=== PATIENT | male | born 1930 ===

== ENCOUNTER 2018-06-13 08:26 | Outpatient (CLI) | payer MEDICARE | END 2018-06-13 08:27 | disposition home or self-care (01) | LOC: C.LAB 08:26 | DX: D50.9 Iron deficiency anemia, unspecified (principal); K86.2 Cyst of pancreas ==

== ENCOUNTER 2018-06-18 08:43 | Outpatient (CLI) | payer MEDICARE | END 2018-06-18 08:44 | disposition home or self-care (01) | LOC: C.CTH 08:43 ==

== ENCOUNTER 2018-08-11 16:30 | Inpatient (IN) | payer MEDICARE ==
[2018-08-11 16:35] VITALS: BMI 20.2
--- NOTE | 2018-08-11 17:03 | C.PDOC ---
History Of Present Illness 87 year old male presents to ED for evaluation after experiencing a syncopal episode. Patient states he has also been experiencing abdominal pain, then "fainted" Patient states he was at baseline earlier in day. Patient is a poor historian. Patient has a PMHx of hypertension, diabetes, and pancreatic cyst. Patient denies fever, chills, headache, nausea, and vomiting. Time Seen by Provider: 08/11/18 16:39 Chief Complaint (Nursing): Syncope History Per: Patient History/Exam Limitations: no limitations Onset/Duration Of Symptoms: Hrs (1) Current Symptoms Are (Timing): Still Present Activity At Onset Of Symptoms: Standing Associated Symptoms Preceding Syncopal Episode: denies: Lightheadedness Seizure Or Post-ictal Symptoms: None Past Medical History Reviewed: Historical Data, Nursing Documentation, Vital Signs Vital Signs: Last Vital Signs Temp 97.4 F L 08/11/18 16:35 Pulse 62 08/11/18 16:35 Resp 18 08/11/18 16:35 BP 115/65 08/11/18 16:35 Pulse Ox 100 08/11/18 16:35 - Medical History PMH: Anemia, Cardia Arrhythmia, Colonic Polyps, Diabetes, Emphysema, HTN, Hypercholesterolemia, Pancreatitis (cyst pancreas??) Denies: Chronic Kidney Disease Surgical History: Coronary Stent - [facility] Procedures CATARAC PHACOEMULS/ASPIR (09/09/13) CLOSED ENDOSCOPIC BIOPSY OF LARGE INTESTINE (04/24/14) ENDO RECTUM POLYPECTOMY (04/24/14) ESOPHAGOGASTRODUODENOSCOPY [EGD] W/CLOSED BIOPSY (01/02/14) INSERT LENS AT CATAR EXT (09/09/13) Family History: States: Unknown Family Hx - Social History Hx Alcohol Use: No Hx Substance Use: No - Immunization History Hx Tetanus Toxoid Vaccination: No Hx Influenza Vaccination: No Hx Pneumococcal Vaccination: Yes Review Of Systems Constitutional: Negative for: Fever, Chills, Weakness Respiratory: Negative for: Shortness of Breath Gastrointestinal: Positive for: Abdominal Pain. Negative for: Nausea, Vomiting Neurological: Positive for: Other (syncopal episode). Negative for: Weakness, Numbness, Dizziness Physical Exam - Physical Exam Appears: Well, No Acute Distress Skin: Normal Color, Warm, Dry Head: Atraumatic, Normacephalic Neck: Normal ROM, Supple Chest: Symmetrical, No Deformity Cardiovascular: Rhythm Regular, No Murmur Respiratory: No Accessory Muscle Use Gastrointestinal/Abdominal: Soft, No Tenderness Extremity: Bilateral: Atraumatic, Normal Color And Temperature, Normal ROM Neurological/Psych: Oriented x3, Normal Speech, Normal Cognition ED Course And Treatment - Laboratory Results Result Diagrams: 08/11/18 17:18 08/11/18 17:18 ECG: Interpreted By Me, Viewed By Me ECG Rhythm: Sinus Rhythm ECG Interpretation: Normal Rate From EC O2 Sat by Pulse Oximetry: 100 (in RA) - Other Rad CXR X-Ray: Interpreted by Me, Viewed By Me Interpretation: IMPRESSION: Poor inspiration with low lung volumes, crowded bronchovascular markings and mild bibasilar atelectasis. - CT Scan/US Abdomen/ Pelvis CT Other Rad Studies (CT/US): Interpreted By Me, Read By Radiologist CT/US Interpretation: EXAM: CT Abdomen and Pelvis without IV contrast. CLINICAL HISTORY: Fall, upper abd pain. TECHNIQUE: Axial computed tomography images of the abdomen and pelvis without intravenous contrast. 0.00 mGy-cm. CONTRAST: Without. COMPARISON: None provided. FINDINGS: LUNG BASES: The lung bases appear clear. No pleural effusions are seen. LIVER: Unremarkable. GALLBLADDER AND BILE DUCTS: Gallbladder appears distended without gallstones or significant gallbladder wall thickening. There is no pericholecystic fluid. PANCREAS: Unremarkable. SPLEEN: Unremarkable. ADRENAL GLANDS: Unremarkable. KIDNEYS, URETERS, AND BLADDER: The kidneys appear within normal limits. There is no hydronephrosis or hydroureter. No urinary calculi are seen. Prostate gland is enlarged and lobulated in contour. STOMACH AND BOWEL: Unremarkable appearance of the stomach and bowel. No evidence of bowel obstruction. No evidence suggesting enteritis or colitis. Diverticular changes present in sigmoid and descending colon. APPENDIX: No evidence of acute appendicitis on CT examination. PERITONEUM: No free fluid. No free air. LYMPH NODES: No lymphadenopathy is evident. VASCULATURE: Advanced atherosclerotic changes present abdominal aorta and iliac vessels. BONES: There is advanced hypertrophic degenerative changes lower lumbar spine with disc space narrowing chronic disc disease at multiple levels. Minimal anterolisthesis L3-L4 level. IMPRESSION: No suspicious mass or lymphadenopathy. Markedly enlarged lobulated prostate gland. Distended gallbladder. Diverticular changes sigmoid colon and descending colon. 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 Minimal anterolisthesis L3-L4 level. Head CT Other Rad Studies (CT/US): Interpreted By Me, Read By Radiologist CT/US Interpretation: EXAM: CT Head without Intravenous Contrast. CLINICAL HISTORY: Syncope. TECHNIQUE: Axial computed tomography images of the head/brain without intravenous contrast. 0.00 mGy-cm. COMPARISON: None provided. FINDINGS: BRAIN. No acute intraparenchymal hemorrhage. No mass lesion. No CT evidence for acute territorial infarct. No midline shift or extra- axial collections. VENTRICLES: No hydrocephalus. ORBITS: The orbits are unremarkable. SINUSES AND MASTOIDS: The paranasal sinuses and mastoid air cells are clear. BONES: No fracture. SOFT TISSUES: Unremarkable. IMPRESSION: No acute intracranial abnormality. Medical Decision Making Medical Decision Making: Impression: 87 year old male s/p experiencing syncopal episode ro intracranil abdominal cardiac vasovagal Plan: EKG and CXR ordered for patient. Head CT and Abdomen/ Pelvis CT ordered for patient. Patient given Protonix IVP. Labs ordered with troponin and UA. labs neg, discussed results with misti cai accpeted for admission. minimal elevated lipase <3x upper limitd. defer further management of other findings inpt. Disposition - Disposition Disposition: HOSPITALIZED Disposition Time: 21:00 Condition: STABLE - Clinical Impression Clinical Impression: Dizziness, Syncope, Abdominal pain - Scribe Statement The provider has reviewed the documentation as recorded by the Scribe (Bia Aden) All medical record entries made by the Scribe were at my direction and pers onally dictated by me. I have reviewed the chart and agree that the record accurately reflects my personal performance of the history, physical exam, medical decision making, and the department course for this patient. I have also personally directed, reviewed, and agree with the discharge instructions and disposition.
[2018-08-11 17:27] LABS: BASO % 0.3 % (0.0-2.0); EOS # 0.1 K/uL (0.0-0.7); EOS % 1.4 % (0.0-4.0); HEMOGLOBIN 13.2 g/dL (12.0-18.0); LYMPH # 0.8 K/uL (1.0-4.3); LYMPH % 11.4 % (20.0-40.0); MEAN CORPUSCULAR HEMOGLOBIN 28.2 pg (27.0-31.0); MEAN CORPUSCULAR HGB CONC 32.2 g/dL (33.0-37.0); MEAN PLATELET VOLUME 8.3 fL (7.2-11.7); MONO # 0.5 K/uL (0.0-0.8); MONO % 6.7 % (0.0-10.0); NEUT # 5.9 K/uL (1.8-7.0); NEUT % 80.2 % (50.0-75.0); RBC 4.68 Mil/uL (4.40-5.90); RED CELL DISTRIBUTION WIDTH 15.9 % (11.5-14.5); WHITE BLOOD COUNT 7.4 K/uL (4.8-10.8)
[2018-08-11 17:30] LABS: MEAN CELL VOLUME 87.7 fL (80.0-94.0)
[2018-08-11 17:34] LABS: INR 1.1; PROTHROMBIN TIME 11.7 SECONDS (9.7-12.2)
[2018-08-11 17:39] LABS: ALB/GLOB RATIO 1.6 (1.0-2.1); ALBUMIN 4.8 g/dL (3.5-5.0); ALT/SGPT 11 U/L (21-72); AST/SGOT 27 U/L (17-59); BLOOD UREA NITROGEN 25 mg/dL (9-20); CALCIUM 9.6 mg/dl (8.6-10.4); GFR NON-AFRICAN AMERICAN 48; LIPASE 455 U/L (23-300)
--- NOTE | 2018-08-11 18:19 | RAD ---
Date of service: 08/11/2018 HISTORY: Chest pain COMPARISON: Comparison chest 08/28/2013. FINDINGS: LUNGS: Poor inspiration with low lung volumes, crowded bronchovascular markings and mild bibasilar atelectasis. PLEURA: No significant pleural effusion identified, no pneumothorax apparent. CARDIOVASCULAR: Minor aortic atherosclerotic calcification present. Normal cardiac size. No pulmonary vascular congestion. OSSEOUS STRUCTURES: No significant abnormalities. VISUALIZED UPPER ABDOMEN: Normal. OTHER FINDINGS: None. IMPRESSION: Poor inspiration with low lung volumes, crowded bronchovascular markings and mild bibasilar atelectasis.
[2018-08-11 18:54] LABS: SQUAMOUS EPITHIAL 1 /hpf (0-5); URINE BACTERIA RARE (<OCC); URINE BILIRUBIN NEGATIVE (NEGATIVE); URINE BLOOD NEGATIVE (NEGATIVE); URINE CLARITY Hazy (Clear); URINE COLOR Amber (YELLOW); URINE GLUCOSE (UA) NORMAL (Normal); URINE LEUKOCYTE ESTERASE NEG Leu/uL (Negative); URINE PROTEIN 2+ mg/dL (NEGATIVE); URINE UROBILINOGEN NORMAL mg/dL (0.2-1.0)
[2018-08-12 03:23] LABS: CK-MB 1.02 ng/mL (0.0-3.38)
[2018-08-12] MEDS: (Novolog) Insulin Aspart, Recombinant 100 u/ml 10 ml vial SC SCH ×4 (07:37→21:03)
--- NOTE | 2018-08-12 08:12 | CT ---
Date of service: 08/11/2018 PROCEDURE: CT HEAD WITHOUT CONTRAST. HISTORY: syncope COMPARISON: None available. TECHNIQUE: Axial computed tomography images were obtained through the head/brain without intravenous contrast. Radiation dose: Total exam DLP = 1053.09 mGy-cm. This CT exam was performed using one or more of the following dose reduction techniques: Automated exposure control, adjustment of the mA and/or kV according to patient size, and/or use of iterative reconstruction technique. FINDINGS: HEMORRHAGE: No intracranial hemorrhage. BRAIN: There are mild chronic microangiopathic changes. There is no mass, mass effect or abnormal extra-axial fluid collection. There is no territorial infarction. The midline sagittal structures are normal. VENTRICLES: There is mild age-related global parenchymal volume loss and proportionate enlargement of the ventricles and cortical sulci. CALVARIUM: There is no calvarial fracture or extracranial soft tissue swelling. PARANASAL SINUSES: Predominantly clear. MASTOID AIR CELLS: Predominantly clear. OTHER FINDINGS: None. IMPRESSION: No acute intracranial abnormality. Mild chronic microangiopathic changes and mild age-related global parenchymal volume loss. A preliminary report was provided by [facility].
[2018-08-12 08:40] LABS: FREE T4 0.86 ng/dL (0.78-2.19)
--- NOTE | 2018-08-12 08:59 | CT ---
Date of service: 08/11/2018 PROCEDURE: CT Abdomen and Pelvis without intravenous contrast HISTORY: upper abd pain COMPARISON: 06/28/2018 TECHNIQUE: Technique. Contrast dose: Radiation dose: Total exam DLP = 270.23 mGy-cm. This CT exam was performed using one or more of the following dose reduction techniques: Automated exposure control, adjustment of the mA and/or kV according to patient size, and/or use of iterative reconstruction technique. FINDINGS: LOWER THORAX: Unremarkable. LIVER: Unremarkable. No gross lesion or ductal dilatation. GALLBLADDER AND BILE DUCTS: Distended gallbladder. PANCREAS: Unremarkable. No gross lesion or ductal dilatation. SPLEEN: Unremarkable. ADRENALS: Unremarkable. No mass. KIDNEYS AND URETERS: Unremarkable. No hydronephrosis. No solid mass. VASCULATURE: Unremarkable. No aortic aneurysm. No aortic atherosclerotic calcification or mural plaque present. BOWEL: Diverticulosis. APPENDIX: Unremarkable. Normal appendix. PERITONEUM: Unremarkable. No free fluid. No free air. LYMPH NODES: Unremarkable. No enlarged lymph nodes. BLADDER: Unremarkable. REPRODUCTIVE: Enlarged lobulated prostate gland. BONES: No acute fracture. OTHER FINDINGS: None. IMPRESSION: Distended gallbladder, colonic diverticulosis. Enlarged prostate
[2018-08-12] MEDS: Metoprolol Succinate 25 mg XL Tab PO SCH (09:35)
[2018-08-12 09:44] LABS: CK-MB 1.06 ng/mL (0.0-3.38)
[2018-08-12] MEDS ORDERED: Home Med 1 UNIT (Solifenacin Succinate [Vesicare] 5 MG) PO SCH (10:00)
[2018-08-12] MEDS: Enoxaparin 30 mg Syringe SC SCH (12:05)
[2018-08-12] MEDS: Ranolazine 500 mg Extended Release Tablets PO SCH ×2 (12:05→17:24)
[2018-08-12] MEDS: CREON PO SCH (17:23)
--- NOTE | 2018-08-12 17:28 | CP.PCM.CON ---
History of Present Illness - History of Present Illness History of Present Illness: CONSULTATION DICTATED SYNCOPAL ATTACK ASYMMETRIC DTRs NEEDS WORK UP MRI/EEG Sz PRECAUTION Past Patient History - Past Medical History & Family History Past Medical History?: Yes - Past Social History Smoking Status: Never Smoked - CARDIAC Hx Hypercholesterolemia: Yes Hx Hypertension: Yes - PULMONARY Hx Emphysema: Yes - NEUROLOGICAL Hx Neurological Disorder: No Hx Dizziness: Yes - HEENT Hx HEENT Problems: No Hx Cataracts: Yes (BIOL) - RENAL Hx Chronic Kidney Disease: No - ENDOCRINE/METABOLIC Hx Diabetes Mellitus Type 2: Yes - HEMATOLOGICAL/ONCOLOGICAL Hx Anemia: Yes - INTEGUMENTARY Hx Dermatological Problems: No - MUSCULOSKELETAL/RHEUMATOLOGICAL Hx Musculoskeletal Disorders: No Hx Back Pain: Yes Hx Falls: No - GASTROINTESTINAL Hx Pancreatitis: Yes (cyst pancreas??) - GENITOURINARY/GYNECOLOGICAL Hx Genitourinary Disorders: Yes Hx Prostate Problems: Yes (ENLARGED) - PSYCHIATRIC Hx Substance Use: No - SURGICAL HISTORY Hx Coronary Stent: Yes - ANESTHESIA Hx Anesthesia: Yes Hx Anesthesia Reactions: No Hx Malignant Hyperthermia: No Meds Allergies/Adverse Reactions: Allergies Allergy/AdvReac Type Severity Reaction Status Date / Time No Known Allergies Allergy Verified 08/11/18 16:35 - Medications Medications: Current Medications Aspirin (Aspirin Chewable) 81 mg PO DAILY [facility] Last Admin: 08/12/18 09:35 Dose: 81 mg Clopidogrel Bisulfate (Plavix) 75 mg PO DAILY [facility] Last Admin: 08/12/18 09:35 Dose: 75 mg Donepezil HCl (Aricept) 5 mg PO [facility] Enalapril Maleate (Vasotec) 5 mg PO DAILY [facility] Last Admin: 08/12/18 09:36 Dose: 5 mg Enoxaparin Sodium (Lovenox) 30 mg SC DAILY [facility] Last Admin: 08/12/18 12:05 Dose: 30 mg Famotidine (Pepcid) 20 mg PO DAILY [facility] Last Admin: 08/12/18 09:36 Dose: 20 mg Home Med (Patient's Own Medication) 3 tab PO TIDCC [facility] Last Admin: 08/12/18 17:23 Dose: 3 tab Influenza Virus Vaccine (Flucelvax Quad [id number] Syr) 60 mcg IM .ONCE ONE Stop: 08/13/18 14:01 Insulin Aspart (Novolog) 0 unit SC [facility]; Protocol Last Admin: 03/04/19 16:43 Dose: Not Given [facility] Last Admin: 08/12/18 17:24 Dose: 1,000 mg Metoprolol Succinate (Toprol Xl) 25 mg PO DAILY [facility] Last Admin: 08/12/18 09:35 Dose: 25 mg Ranolazine (Ranexa) 500 mg PO BID [facility] Last Admin: 08/12/18 17:24 Dose: 500 mg Rosuvastatin Calcium (Crestor) 20 mg PO [facility] Results - Vital Signs Recent Vital Signs: Last Vital Signs Temp 98.0 F 08/12/18 15:16 Pulse 66 08/12/18 15:16 Resp 20 08/12/18 15:16 BP 94/57 L 08/12/18 15:16 Pulse Ox 98 08/12/18 15:16 - Labs Result Diagrams: 08/11/18 17:18 08/11/18 17:18 Labs: Laboratory Results - last 24 hr 08/11/18 08/11/18 08/11/18 17:18 17:18 17:18 WBC 7.4 RBC 4.68 Hgb 13.2 Hct 41.0 MCV 87.7 D MCH 28.2 MCHC 32.2 L RDW 15.9 H Plt Count 244 MPV 8.3 Neut % (Auto) 80.2 H Lymph % (Auto) 11.4 L [place] % (Auto) 6.7 Eos % (Auto) 1.4 Baso % (Auto) 0.3 Neut # (Auto) 5.9 Lymph # (Auto) 0.8 L [place] # (Auto) 0.5 Eos # (Auto) 0.1 Baso # (Auto) 0.0 PT 11.7 INR 1.1 APTT 32 Sodium 137 Potassium 4.2 Chloride 100 Carbon Dioxide 25 Anion Gap 16 BUN 25 H Creatinine 1.4 Est GFR ( Amer) 58 Est GFR (Non-Af Amer) 48 POC Glucose (mg/dL) Random Glucose 132 H Hemoglobin A1c Calcium 9.6 Total Bilirubin 0.3 AST 27 ALT 11 L D Alkaline Phosphatase 80 Total Creatine Kinase CK-MB (Mass) Troponin I < 0.0120 Total Protein 7.8 Albumin 4.8 Globulin 3.0 Albumin/Globulin Ratio 1.6 Lipase 455 H Vitamin B12 Free T4 TSH 3rd Generation Urine Color Urine Clarity Urine pH Ur Specific [place] Urine Protein Urine Glucose (UA) Urine Ketones Urine Blood Urine Nitrate Urine Bilirubin Urine Urobilinogen Ur Leukocyte Esterase Urine WBC (Auto) Urine RBC (Auto) Ur Squamous Epith Cells Urine Bacteria Hyaline Casts 08/11/18 08/12/18 08/12/18 18:30 02:05 07:55 WBC RBC Hgb Hct MCV MCH MCHC RDW Plt Count MPV Neut % (Auto) Lymph % (Auto) [place] % (Auto) Eos % (Auto) Baso % (Auto) Neut # (Auto) Lymph # (Auto) [place] # (Auto) Eos # (Auto) Baso # (Auto) PT INR APTT Sodium Potassium Chloride Carbon Dioxide Anion Gap BUN Creatinine Est GFR ( Amer) Est GFR (Non-Af Amer) POC Glucose (mg/dL) Random Glucose Hemoglobin A1c 6.5 Calcium Total Bilirubin AST ALT Alkaline Phosphatase Total Creatine Kinase 45 L CK-MB (Mass) 1.02 Troponin I < 0.0120 Total Protein Albumin Globulin Albumin/Globulin Ratio Lipase Vitamin B12 Free T4 TSH 3rd Generation Urine Color [place] Urine Clarity Hazy Urine pH 5.0 Ur Specific [place] 1.025 Urine Protein 2+ H Urine Glucose (UA) Normal Urine Ketones Negative Urine Blood Negative Urine Nitrate Negative Urine Bilirubin Negative Urine Urobilinogen Normal Ur Leukocyte Esterase Neg Urine WBC (Auto) 2 Urine RBC (Auto) 1 Ur Squamous Epith Cells 1 Urine Bacteria Rare Hyaline Casts 6-10 H 08/12/18 08/12/18 08/12/18 07:55 07:55 09:09 WBC RBC Hgb Hct MCV MCH MCHC RDW Plt Count MPV Neut % (Auto) Lymph % (Auto) [place] % (Auto) Eos % (Auto) Baso % (Auto) Neut # (Auto) Lymph # (Auto) [place] # (Auto) Eos # (Auto) Baso # (Auto) PT INR APTT Sodium Potassium Chloride Carbon Dioxide Anion Gap BUN Creatinine Est GFR ( Amer) Est GFR (Non-Af Amer) POC Glucose (mg/dL) Random Glucose Hemoglobin A1c Calcium Total Bilirubin AST ALT Alkaline Phosphatase Total Creatine Kinase 45 L CK-MB (Mass) 1.06 Troponin I < 0.0120 Total Protein Albumin Globulin Albumin/Globulin Ratio Lipase Vitamin B12 332 Free T4 0.86 TSH 3rd Generation 1.91 Urine Color Urine Clarity Urine pH Ur Specific [place] Urine Protein Urine Glucose (UA) Urine Ketones Urine Blood Urine Nitrate Urine Bilirubin Urine Urobilinogen Ur Leukocyte Esterase Urine WBC (Auto) Urine RBC (Auto) Ur Squamous Epith Cells Urine Bacteria Hyaline Casts 08/12/18 11:49 WBC RBC Hgb Hct MCV MCH MCHC RDW Plt Count MPV Neut % (Auto) Lymph % (Auto) [place] % (Auto) Eos % (Auto) Baso % (Auto) Neut # (Auto) Lymph # (Auto) [place] # (Auto) Eos # (Auto) Baso # (Auto) PT INR APTT Sodium Potassium Chloride Carbon Dioxide Anion Gap BUN Creatinine Est GFR ( Amer) Est GFR (Non-Af Amer) POC Glucose (mg/dL) 185 H Random Glucose Hemoglobin A1c Calcium Total Bilirubin AST ALT Alkaline Phosphatase Total Creatine Kinase CK-MB (Mass) Troponin I Total Protein Albumin Globulin Albumin/Globulin Ratio Lipase Vitamin B12 Free T4 TSH 3rd Generation Urine Color Urine Clarity Urine pH Ur Specific [place] Urine Protein Urine Glucose (UA) Urine Ketones Urine Blood Urine Nitrate Urine Bilirubin Urine Urobilinogen Ur Leukocyte Esterase Urine WBC (Auto) Urine RBC (Auto) Ur Squamous Epith Cells Urine Bacteria Hyaline Casts
--- NOTE | 2018-08-12 19:20 | CARD ---
APPROVED REPORT Date of service: 08/11/2018 EKG Measurement Heart [id number] <Conclusion> Normal sinus rhythm Left axis deviation Abnormal ECG
--- NOTE | 2018-08-12 21:36 | CP.PCM.HP ---
Past Patient History - Past Medical History & Family History Past Medical History?: Yes - Past Social History Smoking Status: Never Smoked - CARDIAC Hx Hypercholesterolemia: Yes Hx Hypertension: Yes - PULMONARY Hx Emphysema: Yes - NEUROLOGICAL Hx Neurological Disorder: No Hx Dizziness: Yes - HEENT Hx HEENT Problems: No Hx Cataracts: Yes (BIOL) - RENAL Hx Chronic Kidney Disease: No - ENDOCRINE/METABOLIC Hx Diabetes Mellitus Type 2: Yes - HEMATOLOGICAL/ONCOLOGICAL Hx Anemia: Yes - INTEGUMENTARY Hx Dermatological Problems: No - MUSCULOSKELETAL/RHEUMATOLOGICAL Hx Musculoskeletal Disorders: No Hx Back Pain: Yes Hx Falls: No - GASTROINTESTINAL Hx Pancreatitis: Yes (cyst pancreas??) - GENITOURINARY/GYNECOLOGICAL Hx Genitourinary Disorders: Yes Hx Prostate Problems: Yes (ENLARGED) - PSYCHIATRIC Hx Substance Use: No - SURGICAL HISTORY Hx Coronary Stent: Yes - ANESTHESIA Hx Anesthesia: Yes Hx Anesthesia Reactions: No Hx Malignant Hyperthermia: No Meds Allergies/Adverse Reactions: Allergies Allergy/AdvReac Type Severity Reaction Status Date / Time No Known Allergies Allergy Verified 08/11/18 16:35 Physical Exam - Constitutional Appears: Well - Head Exam Head Exam: ATRAUMATIC, NORMAL INSPECTION, NORMOCEPHALIC - Eye Exam Eye Exam: EOMI, Normal appearance, PERRL Pupil Exam: NORMAL ACCOMODATION, PERRL - ENT Exam ENT Exam: Mucous Membranes Moist, Normal Exam - Neck Exam Neck exam: Positive for: Normal Inspection - Respiratory Exam Respiratory Exam: Decreased Breath Sounds - Cardiovascular Exam Cardiovascular Exam: REGULAR RHYTHM, +S1, +S2 - GI/Abdominal Exam GI & Abdominal Exam: Diminished Bowel Sounds, Soft - Rectal Exam Rectal Exam: Deferred Results - Vital Signs Recent Vital Signs: Last Vital Signs Temp 98.0 F 08/12/18 15:16 Pulse 66 08/12/18 15:16 Resp 20 08/12/18 15:16 BP 94/57 L 08/12/18 15:16 Pulse Ox 98 08/12/18 15:16 - Labs Result Diagrams: 08/11/18 17:18 08/11/18 17:18 Labs: Laboratory Results - last 24 hr 08/12/18 08/12/18 08/12/18 02:05 07:55 07:55 POC Glucose (mg/dL) Hemoglobin A1c 6.5 Total Creatine Kinase 45 L CK-MB (Mass) 1.02 Troponin I < 0.0120 Vitamin B12 Free T4 0.86 TSH 3rd Generation 1.91 08/12/18 08/12/18 08/12/18 07:55 09:09 11:49 POC Glucose (mg/dL) 185 H Hemoglobin A1c Total Creatine Kinase 45 L CK-MB (Mass) 1.06 Troponin I < 0.0120 Vitamin B12 332 Free T4 TSH 3rd Generation 08/12/18 20:58 POC Glucose (mg/dL) 135 H Hemoglobin A1c Total Creatine Kinase CK-MB (Mass) Troponin I Vitamin B12 Free T4 TSH 3rd Generation
--- NOTE | 2018-08-12 21:58 | VASCLAB ---
Date of service: 08/12/2018 PROCEDURE: Carotid Duplex Exam. HISTORY: asses stenosis COMPARISON: None available. TECHNIQUE: Grayscale and duplex Doppler evaluation of the cervical carotid and vertebral arteries were performed. The common carotid, carotid bifurcations and cervical Internal Carotid Artery (ICA) and proximal External Carotid Artery (ECA) were evaluated. The vertebral arteries were evaluated for gross patency and flow direction. Report prepared by Samuel George, BS, RVT FINDINGS: RIGHT CAROTID ARTERIES: 1. Common Carotid Artery: No significant focal plaque formation of the right common carotid artery. Mild intimal hyperplasia. Maximum Peak Systolic velocity: 97 cm/sec: End-diastolic velocity 21 cm/sec. 2. Carotid Bifurcation: No significant focal plaque formation. Maximum Peak Systolic velocity: 85 cm/sec: End-diastolic velocity 18 cm/sec. 3. Internal Carotid Artery: Plaque description: No significant focal plaque. 3.1. Proximal Segment: Peak systolic velocity 85 cm/sec: End-diastolic velocity 21 cm/sec - % stenosis 0-15% 3.2. Middle Segment: Peak systolic velocity 125 cm/sec: End-diastolic velocity 36 cm/sec - % stenosis 0-15% 3.3. Distal Segment: Peak systolic velocity 109 cm/sec: End-diastolic velocity 32 cm/sec - % stenosis 0-15% 4. External Carotid Artery: No significant focal plaque formation. Peak systolic velocity 111 cm/sec 5. ICA/CCA Ratio: 1.3 LEFT CAROTID ARTERIES: 1. Common Carotid Artery: No significant focal plaque formation of the left common carotid artery. Mild intimal hyperplasia. Maximum Peak Systolic velocity: 105 cm/sec: End-diastolic velocity 19 cm/sec. 2. Carotid Bifurcation: No significant focal plaque formation. Maximum Peak Systolic velocity: 95 cm/sec: End-diastolic velocity 23 cm/sec. 3. Internal Carotid Artery: Plaque description: No significant focal plaque. 3.1. Proximal Segment: Peak systolic velocity 96 cm/sec: End-diastolic velocity 23 cm/sec - % stenosis 0-15% 3.2. Middle Segment: Peak systolic velocity 87 cm/sec: End-diastolic velocity 22 cm/sec - % stenosis 0-15% 3.3. Distal Segment: Peak systolic velocity 49 cm/sec: End-diastolic velocity 19 cm/sec - % stenosis 0-15% 4. External Carotid Artery: No significant focal plaque formation. Peak systolic velocity 90 cm/sec 5. ICA/CCA Ratio: 1.1 VERTEBRAL ARTERIES: 1. Right Vertebral Artery: The right vertebral artery flow direction is antegrade. 2. Left Vertebral Artery: The left vertebral artery flow direction is antegrade. OTHER FINDINGS: 1. Right Brachial Blood pressure: 120 mmHg. 2. Left Brachial Blood pressure: 110 mmHg. IMPRESSION: RIGHT: Duplex scan does not suggest hemodynamically significant stenosis of the right extracranial carotid arteries. LEFT: Duplex scan does not suggest hemodynamically significant stenosis of the left extracranial carotid arteries.
--- NOTE | 2018-08-13 04:00 | CON ---
DATE: 08/12/2018 ATTENDING PHYSICIAN: Nani Riggs MD LOCATION: The patient's room number 659, bed B. REASON FOR CONSULTATION: Syncopal attack. CHIEF COMPLAINT: The patient was brought into [facility] following a syncopal attack while he was in the [employer]. From neurological point of view, I was called in to evaluate him for further management. HISTORY OF PRESENT ILLNESS: Mr. Ananth Cali is an 87-year-old right-handed male. While he was shopping in [employer], he felt nauseous and abdominal cramp. The next thing he realized he was on the floor. Following this, he was back up by himself; however, this syncopal attack brought him to the hospital for further evaluation. No similar episodes happened in the past. No association of bowel and bladder incontinence. No witnessed tonic-clonic activities at the scene. PAST MEDICAL HISTORY: Hypertension, diabetes mellitus, pancreatic cyst. REVIEW OF SYSTEMS: A 12-point system being reviewed. From neuro, the syncopal attack. MEDICATIONS: Aspirin, Crestor, Glucophage, Lovenox, NovoLog, Pepcid, Toprol, Vasotec. PHYSICAL EXAMINATION: VITAL SIGNS: Blood pressure 100/63, mean arterial pressure of 80, respiratory rate 18, temperature afebrile. NECK: Supple. No carotid bruit. HEART: Sounds are regular. CHEST: Fair air entry. EXTREMITIES: No edema in legs. NEUROLOGIC: Mental status examination: He is awake, alert, oriented to person, place and time. The patient is communicable only in Mauritian. He follows two-step command. No right and left confusion. Cranial nerve examination: Visual field intact. Pupils reactive to light. Extraocular movement normal. No nystagmus. No facial sensory deficit. No facial asymmetry. Hearing is normal. Tongue is midline. Good gag. Motor examination: On outstretched hand with eyes closed, no drift noted. Power is symmetric on either side. Deep tendon reflexes, left side was hyperreflexic to compare with the right side. However, lower extremity reflexes are absent. Plantars are downgoing. 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 WORKUP: CT of the head reported as reviewed by me, no acute pathology is noted. EKG, normal sinus rhythm. LABORATORY DATA: Blood workup, WBC 7.4, hemoglobin 13.2, hematocrit 41, platelet 244. PT 11.7, INR 1.1, PTT 32. Sodium 132, potassium 4.2, chloride 100, bicarbonate 85, BUN 25, glucose 185. B12 of 332. TSH 1.91. CONCLUSION: After reviewing his history from him as well as medical records, the patient does have a syncopal attack with preceding some abdominal sensation. There is a possibility of nonconvulsive seizures unless otherwise proved out. Other possible cardiac causes should be ruled out including vasovagal process. RECOMMENDATIONS: 1. Continue seizure precaution. 2. MRI of the brain. 3. EEG. 4. Control the abnormal electrolytes including his diabetes. The patient will be followed closely with you. Ludin Hyde MD
[2018-08-13] MEDS: (Novolog) Insulin Aspart, Recombinant 100 u/ml 10 ml vial SC SCH ×4 (08:05→21:46)
[2018-08-13] MEDS: CREON PO SCH ×3 (08:30→17:50)
--- NOTE | 2018-08-13 09:55 | MRI ---
Date of service: 08/12/2018 PROCEDURE: MRI BRAIN WITHOUT CONTRAST HISTORY: Ischemia versus mass COMPARISON: Comparison made with prior CT scan brain 08/11/2018 and MRI brain dated 05/26/2016. TECHNIQUE: Multiplanar, multisequence MR images of the brain were obtained without intravenous contrast enhancement. FINDINGS: HEMORRHAGE: No acute parenchymal, subarachnoid nor extra-axial hemorrhage. DWI: No evidence of an acute or early subacute infarction. BRAIN PARENCHYMA: Minor chronic periventricular white matter ischemic changes seen extending peripherally into the deep white matter both cerebral hemispheres. In addition, there are multiple more discrete small chronic infarcts scattered about the deep and subcortical white both cerebral hemispheres. There are a few small lacunar-type infarcts right cerebellar hemisphere. Moderate generalized volume loss VENTRICLES: No obstructive hydrocephalus. CRANIUM: Unremarkable. ORBITS: Changes of bilateral cataract surgery again noted PARANASAL SINUSES/MASTOIDS: Clear VASCULAR SYSTEM: Visualized major vascular flow voids at skull base patent. OTHER FINDINGS: None. IMPRESSION: No evidence of acute intracranial hemorrhage or infarct. Minor chronic white matter ischemic changes with few tiny lacunar-type infarct right cerebellar hemisphere. Moderate generalized volume Loss
--- NOTE | 2018-08-13 10:31 | CP.PCM.CON ---
History of Present Illness - History of Present Illness History of Present Illness: 87 year old male presents to ED for evaluation after experiencing a syncopal episode. Patient states he has also been experiencing abdominal pain, then "fainted" Patient states he was at baseline earlier in day. Patient had poor PO intake day prior and while at a store felt dizzy and fainted. Denies any CP, palpitation, unusual SOB or other premonitory symptoms suggesting CV disease. PMHX: HTN chronic stable; Lipids chronic stable, CAD PCI in 2017, Chronic pancreatic cyst, DM chronic stable on meds Social : non-smoker, no etoh or drugs currently: no dizziness or CP Review of Systems - Review of Systems All systems: reviewed and no additional remarkable complaints except Past Patient History - Past Medical History & Family History Past Medical History?: Yes - Past Social History Smoking Status: Never Smoked - CARDIAC Hx Hypercholesterolemia: Yes Hx Hypertension: Yes - PULMONARY Hx Emphysema: Yes - NEUROLOGICAL Hx Neurological Disorder: No Hx Dizziness: Yes - HEENT Hx HEENT Problems: No Hx Cataracts: Yes (BIOL) - RENAL Hx Chronic Kidney Disease: No - ENDOCRINE/METABOLIC Hx Diabetes Mellitus Type 2: Yes - HEMATOLOGICAL/ONCOLOGICAL Hx Anemia: Yes - INTEGUMENTARY Hx Dermatological Problems: No - MUSCULOSKELETAL/RHEUMATOLOGICAL Hx Musculoskeletal Disorders: No Hx Back Pain: Yes Hx Falls: No - GASTROINTESTINAL Hx Pancreatitis: Yes (cyst pancreas??) - GENITOURINARY/GYNECOLOGICAL Hx Genitourinary Disorders: Yes Hx Prostate Problems: Yes (ENLARGED) - PSYCHIATRIC Hx Substance Use: No - SURGICAL HISTORY Hx Coronary Stent: Yes - ANESTHESIA Hx Anesthesia: Yes Hx Anesthesia Reactions: No Hx Malignant Hyperthermia: No Meds Allergies/Adverse Reactions: Allergies Allergy/AdvReac Type Severity Reaction Status Date / Time No Known Allergies Allergy Verified 08/11/18 16:35 - Medications Medications: Current Medications Aspirin (Aspirin Chewable) 81 mg PO DAILY [facility] Last Admin: 08/12/18 09:35 Dose: 81 mg Clopidogrel Bisulfate (Plavix) 75 mg PO DAILY [facility] Last Admin: 08/13/18 10:16 Dose: 75 mg Donepezil HCl (Aricept) 5 mg PO HS [facility] Last Admin: 08/12/18 21:25 Dose: 5 mg Enalapril Maleate (Vasotec) 5 mg PO DAILY [facility] Last Admin: 08/12/18 09:36 Dose: 5 mg Enoxaparin Sodium (Lovenox) 30 mg SC DAILY [facility] Last Admin: 08/12/18 12:05 Dose: 30 mg Famotidine (Pepcid) 20 mg PO DAILY [facility] Last Admin: 08/12/18 09:36 Dose: 20 mg Home Med (Patient's Own Medication) 3 tab PO TIDCC [facility] Last Admin: 08/12/18 17:23 Dose: 3 tab Influenza Virus Vaccine (Flucelvax Quad [id number] Syr) 60 mcg IM .ONCE ONE Stop: 08/13/18 14:01 Insulin Aspart (Novolog) 0 unit SC [facility]; Protocol Last Admin: 08/13/18 08:05 Dose: Not Given Metformin HCl (Glucophage) 1,000 mg PO BIDCC [facility] Last Admin: 08/12/18 17:24 Dose: 1,000 mg Metoprolol Succinate (Toprol Xl) 25 mg PO DAILY [facility] Last Admin: 08/12/18 09:35 Dose: 25 mg Ranolazine (Ranexa) 500 mg PO BID [facility] Last Admin: 08/12/18 17:24 Dose: 500 mg Rosuvastatin Calcium (Crestor) 20 mg PO HS [facility] Last Admin: 08/12/18 21:25 Dose: 20 mg Physical Exam - Constitutional Appears: No Acute Distress - Head Exam Head Exam: ATRAUMATIC, NORMAL INSPECTION, NORMOCEPHALIC - Eye Exam Eye Exam: EOMI, Normal appearance. absent: Scleral icterus - ENT Exam ENT Exam: Mucous Membranes Moist, Normal Oropharynx - Neck Exam Neck exam: Positive for: Normal Inspection - Respiratory Exam Respiratory Exam: Clear to Auscultation Bilateral. absent: Rhonchi, Wheezes - Cardiovascular Exam Cardiovascular Exam: Irregular Rhythm, REGULAR RHYTHM, +S1. absent: JVD, Systolic Murmur - GI/Abdominal Exam GI & Abdominal Exam: Normal Bowel Sounds, Soft. absent: Tenderness - Extremities Exam Extremities exam: Positive for: normal inspection. Negative for: calf tenderness, pedal edema - Neurological Exam Neurological exam: Alert, Oriented x3 - Psychiatric Exam Psychiatric exam: Normal Affect, Normal Mood - Skin Skin Exam: Normal Color, Warm Results - Vital Signs Recent Vital Signs: Last Vital Signs Temp 98.2 F 08/13/18 07:00 Pulse 69 08/13/18 07:00 Resp 20 08/13/18 07:00 BP 111/69 08/13/18 07:00 Pulse Ox 94 L 08/13/18 07:00 - Labs Result Diagrams: 08/11/18 17:18 08/11/18 17:18 Labs: Laboratory Results - last 24 hr 08/12/18 08/12/18 11:49 20:58 POC Glucose (mg/dL) 185 H 135 H - EKG Data EKG Interpreted by: Myself - Imaging and Cardiology Chest x-ray Status: Image reviewed by me Assessment & Plan - Assessment and Plan (Free Text) Assessment: 87 y/o man > Syncope: likely vasodepressor from wekaness/dehydration > EKG: NSR, no acute ischemic changes or other high risk findings > CXR: No infiltrate or effusion > Neuro-imaging: Head CT, MRI, carotid: mild atherosclerosis, no acute pathology > Labs: WNL, mild hyperglycemia Sxs do not suggest any cardiac cause: Cont same RX for CAD, HTN, LIPIDS, DM with DAPT, statin, DM meds. Known to have normal LVEF with stage 1 diastolic dysfunction on recent echo 07/2018 outpatient. F/U with Dr. Lorenzo after d.c > GI eval if abdominal sxs persistent.
[2018-08-13] MEDS: Enoxaparin 30 mg Syringe SC SCH (10:32)
[2018-08-13] MEDS: Ranolazine 500 mg Extended Release Tablets PO SCH ×2 (10:33→17:50)
[2018-08-13] MEDS: Metoprolol Succinate 25 mg XL Tab PO SCH (10:34)
--- NOTE | 2018-08-13 12:45 | PN ---
DATE: 08/13/2018 TIME OF EVALUATION: 07:15 a.m. NEUROLOGICAL PROBLEM: Syncopal attack. PHYSICAL EXAMINATION: VITAL SIGNS: Blood pressure 121/76, mean arterial pressure 91, respiratory rate 18, temperature afebrile. GENERAL: The patient is awake, alert, oriented to person, place and time. The patient admits three times watery diarrhea with little headache since then. No new episode of syncope. Rest of the examination is unchanged. WORKUP: Electroencephalogram shows mild slow activities without any focality, paroxysmal activities have focal slowing. Blood glucose level 135. ASSESSMENT AND PLAN: The patient should be hydrated well and cardiology clearance to be done prior to discharge. The patient also recommended to have MRI of the brain, which has been reviewed; does not show any acute pathology except mild atrophy and small vessel disease. Ludin Hyde MD
[2018-08-13] MEDS ORDERED: Influenza Vaccine 60 mcg/0.5 mL SYR (4YR UP) IM ONE (13:00)
--- NOTE | 2018-08-13 19:00 | CP.PCM.PN ---
Subjective - Date & Time of Evaluation Date of Evaluation: 08/13/18 Time of Evaluation: 11:30 - Subjective Subjective: clinically same Objective - Vital Signs/Intake and Output Vital Signs (last 24 hours): Temp Pulse Resp BP Pulse Ox 97.3 F L 58 L 20 112/68 100 08/13/18 15:20 08/13/18 15:20 08/13/18 15:20 08/13/18 15:20 08/13/18 15:20 - Medications Medications: Current Medications Aspirin (Aspirin Chewable) 81 mg PO DAILY [facility] Last Admin: 08/13/18 10:34 Dose: 81 mg Clopidogrel Bisulfate (Plavix) 75 mg PO DAILY [facility] Last Admin: 08/13/18 10:16 Dose: 75 mg Donepezil HCl (Aricept) 5 mg PO HS [facility] Last Admin: 08/12/18 21:25 Dose: 5 mg Enalapril Maleate (Vasotec) 5 mg PO DAILY [facility] Last Admin: 08/13/18 10:34 Dose: 5 mg Enoxaparin Sodium (Lovenox) 30 mg SC DAILY [facility] Last Admin: 08/13/18 10:32 Dose: 30 mg Famotidine (Pepcid) 20 mg PO DAILY [facility] Last Admin: 08/13/18 10:33 Dose: 20 mg Home Med (Patient's Own Medication) 3 tab PO TIDCC [facility] Last Admin: 08/13/18 17:50 Dose: 3 tab Insulin Aspart (Novolog) 0 unit SC [facility]; Protocol Last Admin: 08/13/18 17:52 Dose: Not Given Metformin HCl (Glucophage) 1,000 mg PO BIDCC [facility] Last Admin: 08/13/18 17:50 Dose: 1,000 mg Metoprolol Succinate (Toprol Xl) 25 mg PO DAILY [facility] Last Admin: 08/13/18 10:34 Dose: 25 mg Ranolazine (Ranexa) 500 mg PO BID [facility] Last Admin: 08/13/18 17:50 Dose: 500 mg Rosuvastatin Calcium (Crestor) 20 mg PO HS [facility] Last Admin: 08/12/18 21:25 Dose: 20 mg - Labs Labs: 08/11/18 17:18 08/11/18 17:18 PT 11.7 SECONDS (9.7-12.2) 08/11/18 17:18 INR 1.1 08/11/18 17:18 APTT 32 SECONDS (21-34) 08/11/18 17:18 - Constitutional Appears: Well - Head Exam Head Exam: ATRAUMATIC, NORMAL INSPECTION, NORMOCEPHALIC - Eye Exam Eye Exam: EOMI, Normal appearance, PERRL Pupil Exam: NORMAL ACCOMODATION, PERRL - ENT Exam ENT Exam: Mucous Membranes Moist, Normal Exam - Neck Exam Neck Exam: Full ROM, Normal Inspection. absent: Lymphadenopathy - Respiratory Exam Respiratory Exam: Decreased Breath Sounds - Cardiovascular Exam Cardiovascular Exam: REGULAR RHYTHM, +S1, +S2 - GI/Abdominal Exam GI & Abdominal Exam: Soft, Diminished Bowel Sounds - Rectal Exam Rectal Exam: Deferred
[2018-08-13] MEDS ORDERED: Atropine-Diphenoxylate 0.025-2.5 mg Tab PO STA (23:47)
[2018-08-14] MEDS: CREON PO SCH ×3 (08:29→17:58)
[2018-08-14] MEDS: (Novolog) Insulin Aspart, Recombinant 100 u/ml 10 ml vial SC SCH ×4 (08:30→21:59)
[2018-08-14] MEDS: Ranolazine 500 mg Extended Release Tablets PO SCH ×2 (09:31→17:58)
[2018-08-14] MEDS: Metoprolol Succinate 25 mg XL Tab PO SCH (09:31)
[2018-08-14] MEDS: Enoxaparin 30 mg Syringe SC SCH (09:35)
[2018-08-14] MEDS: Sodium Chloride 0.9% 1,000 ML IV SCH ×2 (10:38→20:12)
--- NOTE | 2018-08-14 10:46 | CP.PCM.PN ---
Subjective - Date & Time of Evaluation Date of Evaluation: 08/14/18 Time of Evaluation: 10:45 - Subjective Subjective: Events reviewed Objective - Vital Signs/Intake and Output Vital Signs (last 24 hours): Temp Pulse Resp BP Pulse Ox 98.0 F 64 20 117/68 99 08/14/18 07:00 08/14/18 09:34 08/14/18 07:00 08/14/18 09:34 08/14/18 07:00 - Medications Medications: Current Medications Aspirin (Aspirin Chewable) 81 mg PO DAILY [facility] Last Admin: 08/14/18 09:31 Dose: 81 mg Clopidogrel Bisulfate (Plavix) 75 mg PO DAILY [facility] Last Admin: 08/14/18 09:31 Dose: 75 mg Donepezil HCl (Aricept) 5 mg PO [facility] Last Admin: 08/13/18 21:43 Dose: 5 mg Enalapril Maleate (Vasotec) 5 mg PO DAILY [facility] Last Admin: 08/14/18 09:34 Dose: 5 mg Enoxaparin Sodium (Lovenox) 30 mg SC DAILY [facility] Last Admin: 08/14/18 09:35 Dose: 30 mg Famotidine (Pepcid) 20 mg PO DAILY [facility] Last Admin: 08/14/18 09:32 Dose: 20 mg Home Med (Patient's Own Medication) 3 tab PO TIDCC [facility] Last Admin: 08/14/18 08:29 Dose: 3 tab Sodium Chloride (Sodium Chloride 0.9%) 1,000 mls @ 100 mls/hr IV .Q10H [facility] Stop: 08/15/18 05:44 Last Admin: 08/14/18 10:38 Dose: 100 mls/hr Insulin Aspart (Novolog) 0 unit SC [facility]; Protocol Last Admin: 08/14/18 08:30 Dose: Not Given Metoprolol Succinate (Toprol Xl) 25 mg PO DAILY [facility] Last Admin: 08/14/18 09:31 Dose: 25 mg Ranolazine (Ranexa) 500 mg PO BID [facility] Last Admin: 08/14/18 09:31 Dose: 500 mg Rosuvastatin Calcium (Crestor) 20 mg PO HS [facility] Last Admin: 08/13/18 21:42 Dose: 20 mg - Labs Labs: 08/11/18 17:18 08/11/18 17:18 PT 11.7 SECONDS (9.7-12.2) 08/11/18 17:18 INR 1.1 08/11/18 17:18 APTT 32 SECONDS (21-34) 08/11/18 17:18 Assessment and Plan - Assessment and Plan (Free Text) Assessment: Physical Exam - Constitutional Appears: No Acute Distress - Head Exam Head Exam: ATRAUMATIC, NORMAL INSPECTION, NORMOCEPHALIC - Eye Exam Eye Exam: EOMI, Normal appearance. absent: Scleral icterus - ENT Exam ENT Exam: Mucous Membranes Moist, Normal Oropharynx - Neck Exam Neck exam: Positive for: Normal Inspection - Respiratory Exam Respiratory Exam: Clear to Auscultation Bilateral. absent: Rhonchi, Wheezes - Cardiovascular Exam Cardiovascular Exam: Irregular Rhythm, REGULAR RHYTHM, +S1. absent: JVD, Systolic Murmur - GI/Abdominal Exam GI & Abdominal Exam: Normal Bowel Sounds, Soft. absent: Tenderness - Extremities Exam Extremities exam: Positive for: normal inspection. Negative for: calf tenderness, pedal edema - Neurological Exam Neurological exam: Alert, Oriented x3 - Psychiatric Exam Psychiatric exam: Normal Affect, Normal Mood - Skin Skin Exam: Normal Color, Warm - EKG Data EKG Interpreted by: Myself - Imaging and Cardiology Chest x-ray Status: Image reviewed by me Assessment & Plan - Assessment and Plan (Free Text) Assessment: 87 y/o man > Syncope: vasodepressor mechanism, encourage PO intake, SARAH stockings; long standing history of Vertigo. > EKG: NSR, no acute ischemic changes or other high risk findings > CXR: No infiltrate or effusion > Neuro-imaging: Head CT, MRI, carotid: mild atherosclerosis, no acute pathology > Labs: WNL, mild hyperglycemia Sxs do not suggest any cardiac cause: Cont same RX for CAD, HTN, LIPIDS, DM with DAPT, statin, DM meds. Known to have normal LVEF with stage 1 diastolic dysfunction on recent echo 07/2018 outpatient. F/U with Dr. Lorenzo after d.c > GI eval if abdominal sxs persistent.
[2018-08-14 11:58] LABS: BASO % 0.3 % (0.0-2.0); EOS # 0.1 K/uL (0.0-0.7); EOS % 2.9 % (0.0-4.0); HEMOGLOBIN 11.9 g/dL (12.0-18.0); LYMPH # 1.4 K/uL (1.0-4.3); LYMPH % 27.9 % (20.0-40.0); MEAN CELL VOLUME 87.7 fL (80.0-94.0); MEAN CORPUSCULAR HEMOGLOBIN 28.6 pg (27.0-31.0); MEAN CORPUSCULAR HGB CONC 32.6 g/dL (33.0-37.0); MEAN PLATELET VOLUME 8.9 fL (7.2-11.7); MONO # 0.4 K/uL (0.0-0.8); NEUT % 59.9 % (50.0-75.0); NRBC % 0.1 % (0.0-2.0); RBC 4.14 Mil/uL (4.40-5.90); RED CELL DISTRIBUTION WIDTH 15.6 % (11.5-14.5)
[2018-08-14 12:44] LABS: BLOOD UREA NITROGEN 26 mg/dL (9-20); CALCIUM 8.5 mg/dl (8.6-10.4); GFR NON-AFRICAN AMERICAN > 60
--- NOTE | 2018-08-14 19:08 | CP.PCM.PN ---
Subjective - Date & Time of Evaluation Date of Evaluation: 08/14/18 Time of Evaluation: 10:45 - Subjective Subjective: clinically same Objective - Vital Signs/Intake and Output Vital Signs (last 24 hours): Temp Pulse Resp BP Pulse Ox 98.3 F 70 18 97/52 L 99 08/14/18 15:38 08/14/18 16:28 08/14/18 15:38 08/14/18 15:38 08/14/18 15:38 Intake and Output: 08/14/18 08/15/18 18:59 06:59 Intake Total 950 Balance 950 - Medications Medications: Current Medications Aspirin (Aspirin Chewable) 81 mg PO DAILY [facility] Last Admin: 08/14/18 09:31 Dose: 81 mg Clopidogrel Bisulfate (Plavix) 75 mg PO DAILY [facility] Last Admin: 08/14/18 09:31 Dose: 75 mg Donepezil HCl (Aricept) [address] [facility] Last Admin: 08/13/18 21:43 Dose: 5 mg Enalapril Maleate (Vasotec) 5 mg PO DAILY [facility] Last Admin: 08/14/18 09:34 Dose: 5 mg Enoxaparin Sodium (Lovenox) 30 mg SC DAILY [facility] Last Admin: 08/14/18 09:35 Dose: 30 mg Famotidine (Pepcid) 20 mg PO DAILY [facility] Last Admin: 08/14/18 09:32 Dose: 20 mg Home Med (Patient's Own Medication) 3 tab PO TIDCC [facility] Last Admin: 08/14/18 17:58 Dose: 3 tab Sodium Chloride (Sodium Chloride 0.9%) 1,000 mls @ 100 mls/hr IV .Q10H [facility] Stop: 08/15/18 05:44 Last Admin: 08/14/18 10:38 Dose: 100 mls/hr Insulin Aspart (Novolog) 0 unit SC [facility]; Protocol Last Admin: 08/14/18 17:59 Dose: Not Given Metoprolol Succinate (Toprol Xl) 25 mg PO DAILY [facility] Last Admin: 08/14/18 09:31 Dose: 25 mg Ranolazine (Ranexa) 500 mg PO BID [facility] Last Admin: 08/14/18 17:58 Dose: 500 mg Rosuvastatin Calcium (Crestor) [address] [facility] Last Admin: 08/13/18 21:42 Dose: 20 mg - Labs Labs: 08/14/18 11:53 08/14/18 11:53 PT 11.7 SECONDS (9.7-12.2) 08/11/18 17:18 INR 1.1 08/11/18 17:18 APTT 32 SECONDS (21-34) 08/11/18 17:18 - Constitutional Appears: Well - Head Exam Head Exam: ATRAUMATIC, NORMAL INSPECTION, NORMOCEPHALIC - Eye Exam Eye Exam: EOMI, Normal appearance, PERRL Pupil Exam: NORMAL ACCOMODATION, PERRL - ENT Exam ENT Exam: Mucous Membranes Moist, Normal Exam - Neck Exam Neck Exam: Full ROM, Normal Inspection. absent: Lymphadenopathy - Respiratory Exam Respiratory Exam: Decreased Breath Sounds - Cardiovascular Exam Cardiovascular Exam: REGULAR RHYTHM, +S1, +S2 - GI/Abdominal Exam GI & Abdominal Exam: Soft, Diminished Bowel Sounds - Rectal Exam Rectal Exam: Deferred
[2018-08-15 01:15] VITALS: RESP 20; O2SAT 100
[2018-08-15 07:43] VITALS: PULSE 61
[2018-08-15 08:14] VITALS: TEMP 97.5
[2018-08-15] MEDS: (Novolog) Insulin Aspart, Recombinant 100 u/ml 10 ml vial SC SCH ×2 (08:22→12:31)
[2018-08-15] MEDS: CREON PO SCH ×2 (09:00→12:31)
[2018-08-15] MEDS: Metoprolol Succinate 25 mg XL Tab PO SCH (09:02)
[2018-08-15] MEDS: Enoxaparin 30 mg Syringe SC SCH (09:02)
[2018-08-15] MEDS: Ranolazine 500 mg Extended Release Tablets PO SCH (09:02)
[2018-08-15 09:05] VITALS: BP 120/65
== END 2018-08-15 15:06 | disposition home or self-care (01) | DRG 312 ==
LOC: C.ER 16:30 → C.9E 19:18 → C.6T 20:26
PROVIDERS: ADMIT Internal Medicine Nephrology; ATTEND Internal Medicine Nephrology
DX: R55 Syncope and collapse (principal); Z95.5 Presence of coronary angioplasty implant and graft; J43.9 Emphysema, unspecified; I25.10 Atherosclerotic heart disease of native coronary artery without angina pectoris; I10 Essential (primary) hypertension; E78.00 Pure hypercholesterolemia, unspecified; E11.9 Type 2 diabetes mellitus without complications; E86.0 Dehydration

== ENCOUNTER 2018-09-25 07:34 | Outpatient (CLI) | payer MEDICARE | END 2018-09-25 07:35 | disposition home or self-care (01) | LOC: C.CTH 07:34 | DX: R55 Syncope and collapse (principal) ==